=== PATIENT | male | born 1945 | race Caucasian/White ===

== ENCOUNTER 2020-03-06 12:56 | Inpatient (IN) ==
[2020-03-06] MEDS ORDERED: Ondansetron 4 MG/2 ML VIAL IVP PRN (15:31)
[2020-03-06] MEDS ORDERED: Naloxone 0.4 MG/ML INJ IVP PRN (15:31)
[2020-03-06] MEDS ORDERED: Ipratropium/Albuterol Neb 3 ML IH SCH (17:00)
[2020-03-06] MEDS: Azithromycin 250 MG TABLET PO SCH (19:34)
[2020-03-07 05:16] LABS: Basophils % 0.1 %; Hematocrit 43.1 % (37.5-50.1); Hemoglobin 14.2 g/dL (12.9-16.9); Immature Granulocytes % 0.8 % (0-4); Lymphocytes # 0.9 K/mcL (0.6-4.6); Lymphocytes % 9.6 %; Mean Corpuscular HGB Conc 32.9 g/dL (31.6-35.5); Mean Corpuscular Hemoglobin 29.4 pg (28.0-33.3); Mean Corpuscular Volume 89.2 fL (83.0-100.0); Mean Platelet Volume 9.4 fL (9.4-12.4); Monocytes # 0.2 K/mcL (0.0-1.3); Monocytes % 2.6 %; Neutrophils # 7.7 K/mcL (1.6-8.9); Platelet Count 141 K/mcL (140-400); Red Blood Count 4.83 M/mcL (4.19-5.50); Red Cell Distribution Width 13.9 % (11.5-14.5); Segmented Neutrophils % 86.9 %; White Blood Count 8.8 K/mcL (4.3-11.1)
[2020-03-07 05:35] LABS: C-Reactive Protein 161 mg/L (Less than 10); Lactate Dehydrogenase 281 Units/L (140-271)
[2020-03-07 05:37] LABS: Calcium 9.6 mg/dL (8.6-10.3); Chol/HDL Ratio 3.6 (0-4.9); Magnesium 2.2 mg/dL (1.6-2.6); Phosphorous 4.7 mg/dL (2.7-4.5); Potassium 4.9 mEq/L (3.5-5.1)
[2020-03-07 05:41] LABS: Troponin I 0.07 ng/mL (< 0.04)
[2020-03-07 05:54] LABS: Ferritin 763 ng/mL (20-250)
[2020-03-07] MEDS: Tiotropium 18 MCG inhalation IH SCH (10:15)
[2020-03-07] MEDS: Azithromycin 250 MG TABLET PO SCH (18:00)
[2020-03-07] MEDS: FLUoxetine HCl 10 MG CAPSULE PO SCH ×2 (19:46→21:12)
[2020-03-07] MEDS: Aspirin 81 MG TAB.CHEW PO SCH (19:46)
[2020-03-08 04:35] LABS: Calcium 9.2 mg/dL (8.6-10.3); Potassium 4.5 mEq/L (3.5-5.1)
[2020-03-08] MEDS: Aspirin 81 MG TAB.CHEW PO SCH (08:03)
[2020-03-08] MEDS: Tiotropium 18 MCG inhalation IH SCH (08:04)
[2020-03-08] MEDS: Budesonide/Formoterol 160/4.5 1 PUFF INH IH SCH ×2 (08:04→22:07)
[2020-03-08] MEDS ORDERED: predniSONE 20 MG TABLET PO ONE (11:59)
[2020-03-08] MEDS: Azithromycin 250 MG TABLET PO SCH (17:19)
[2020-03-08] MEDS: FLUoxetine HCl 10 MG CAPSULE PO SCH (20:32)
[2020-03-09] MEDS: Aspirin 81 MG TAB.CHEW PO SCH (07:50)
[2020-03-09] MEDS: Budesonide/Formoterol 160/4.5 1 PUFF INH IH SCH (08:32)
[2020-03-09 11:21] VITALS: BP 110/65
== END 2020-03-09 11:29 | disposition home or self-care (01) | DRG 189 ==
LOC: 2ANU → 2NENU 17:36 → SUATTDRO 03-08 14:34 → 2ANU 03-08 21:22
PROVIDERS: ADMIT Internal Medicine; ATTEND Pharmacist

== ENCOUNTER 2021-05-27 09:15 | Inpatient (IN) ==
[2021-05-27] MEDS ORDERED: Gadolinium Contrast Agent (WT Based) IV PRN (09:33)
[2021-05-27] MEDS ORDERED: Aspirin 81 MG TAB.CHEW PO ONE (09:34)
[2021-05-27 09:51] LABS: Basophils # 0.1 K/mcL (0.0-0.2); Basophils % 0.5 %; Eosinophils # 0.1 K/mcL (0.0-0.6); Eosinophils % 0.8 %; Hematocrit 40.5 % (37.5-50.1); Hemoglobin 12.9 g/dL (12.9-16.9); Immature Granulocytes % 1.1 % (0-4); Lymphocytes # 2.5 K/mcL (0.6-4.6); Lymphocytes % 23.1 %; Mean Corpuscular HGB Conc 31.9 g/dL (31.6-35.5); Mean Corpuscular Hemoglobin 30.6 pg (28.0-33.3); Mean Platelet Volume 8.8 fL (9.4-12.4); Monocytes # 0.7 K/mcL (0.0-1.3); Monocytes % 6.6 %; Neutrophils # 7.5 K/mcL (1.6-8.9); Platelet Count 181 K/mcL (140-400); Red Blood Count 4.22 M/mcL (4.19-5.50); Segmented Neutrophils % 67.9 %
[2021-05-27 10:15] LABS: Troponin I 0.04 ng/mL (< 0.04)
[2021-05-27 10:20] LABS: Albumin 3.9 g/dL (3.5-5.7); Albumin/Globulin Ratio 1.9 (1.1-2.2); Bilirubin,Direct 0.1 mg/dL (0.0-0.2); Bilirubin,Indirect 0.7 mg/dL (0.0-1.0); Bilirubin,Total 0.8 mg/dL (0.3-1.0); Calcium 9.2 mg/dL (8.6-10.3); Globulin 2.1 g/dL (2.4-3.5); Potassium 4.1 mEq/L (3.5-5.1)
[2021-05-27] MEDS ORDERED: Morphine Sulfate 2 MG/ML SYRINGE IVP STA (12:48)
[2021-05-27] MEDS ORDERED: Morphine Sulfate 2 MG/ML SYRINGE IVP ONE (13:32)
[2021-05-27] MEDS ORDERED: GADOBUTROL 30 MMOL/30 ML VIAL IVP ONE (14:38)
[2021-05-27 16:24] LABS: Bilirubin,Urine Negative (Negative); Blood,Urine Negative (Negative); Clarity,Urine Clear (Clear); Color,Urine Yellow (Yellow); Glucose,Urine (UA) Normal (Normal); Ketones,Urine Negative (Negative); Leukocyte Esterase,Urine Negative (Negative); Nitrite,Urine Negative (Negative); PH,Urine 6.5 pH Units (5.0-8.0); Protein,Urine Trace mg/dL (Neg-Trace); Specific Gravity,Urine 1.028 (1.010-1.025)
[2021-05-27] MEDS ORDERED: Naloxone 0.4 MG/ML INJ IVP PRN (17:13)
[2021-05-27] MEDS ORDERED: Acetaminophen 325 MG TABLET PO PRN (17:13)
[2021-05-27] MEDS ORDERED: *HR* HYDROcodone/Acet 5/325 mg TABLET PO PRN ×2 (17:54→18:18)
[2021-05-27] MEDS ORDERED: Nitroglycerin 0.4 MG TAB.SUBL SL PRN (18:18)
[2021-05-27] MEDS: Budesonide/Formoterol 160/4.5 1 PUFF INH IH SCH (20:01)
[2021-05-27] MEDS: FLUoxetine HCl 10 MG CAPSULE PO SCH (20:49)
[2021-05-27] MEDS: Gabapentin 100 MG CAPSULE PO SCH (20:49)
[2021-05-27] MEDS: Albuterol 2.5 MG/3 ML NEBULIZER IH PRN (21:56)
[2021-05-27] MEDS: *HR* OxyCODONE Immed Rel 5 MG TABLET PO PRN (23:59)
[2021-05-28] MEDS ORDERED: predniSONE 10 MG TABLET PO SCH (01:00)
[2021-05-28 02:40] LABS: Basophils % 0.4 %; Eosinophils % 0.4 %; Hematocrit 37.1 % (37.5-50.1); Hemoglobin 12.2 g/dL (12.9-16.9); Immature Granulocytes % 1.3 % (0-4); Lymphocytes # 1.9 K/mcL (0.6-4.6); Lymphocytes % 23.8 %; Mean Corpuscular HGB Conc 32.9 g/dL (31.6-35.5); Mean Corpuscular Hemoglobin 30.8 pg (28.0-33.3); Mean Corpuscular Volume 93.7 fL (83.0-100.0); Mean Platelet Volume 8.9 fL (9.4-12.4); Monocytes # 0.5 K/mcL (0.0-1.3); Monocytes % 6.4 %; Neutrophils # 5.3 K/mcL (1.6-8.9); Platelet Count 156 K/mcL (140-400); Red Blood Count 3.96 M/mcL (4.19-5.50); Red Cell Distribution Width 15.9 % (11.5-14.5); Segmented Neutrophils % 67.7 %; White Blood Count 7.8 K/mcL (4.3-11.1)
[2021-05-28 03:00] LABS: BUN/Creatinine Ratio 19 (6-26); Blood Urea Nitrogen 25 mg/dL (8-23); Calcium 9.1 mg/dL (8.6-10.3); Carbon Dioxide 25 mEq/L (23-29); Chloride 104 mEq/L (98-107); Glucose 82 mg/dL (70-105); Osmolality,Calculated 289 (280-300); Potassium 4.4 mEq/L (3.5-5.1); Sodium 138 mEq/L (136-145); eGFR For African Americans > 60 (> 60); eGFR For Non-African Americans 52 (> 60)
[2021-05-28] MEDS ORDERED: Furosemide 20 MG TABLET PO SCH (09:00)
[2021-05-28] MEDS: Metoprolol XL (24 HR) Succ 25 MG TAB.ER.24H PO SCH (09:26)
[2021-05-28] MEDS: Gabapentin 100 MG CAPSULE PO SCH ×3 (09:26→20:35)
[2021-05-28] MEDS: *HR* OxyCODONE Immed Rel 5 MG TABLET PO PRN ×2 (09:29→18:59)
[2021-05-28] MEDS: Budesonide/Formoterol 160/4.5 1 PUFF INH IH SCH ×2 (09:38→20:20)
[2021-05-28] MEDS: Albuterol 2.5 MG/3 ML NEBULIZER IH PRN (09:43)
[2021-05-28] MEDS ORDERED: 0.9 % Sodium Chloride 1,000 ML IVC SCH (13:45)
[2021-05-28] MEDS ORDERED: Aspirin Enteric Coated 81 MG Tablet PO SCH (13:45)
[2021-05-28] MEDS ORDERED: Perflutren Lipid Microsphere 1.3 ML in 0.9 % Sodium Chloride 8.7 ML IVP PRN (16:36)
[2021-05-28] MEDS: FLUoxetine HCl 10 MG CAPSULE PO SCH (20:34)
[2021-05-29 03:34] LABS: Basophils % 0.2 %; Eosinophils # 0.1 K/mcL (0.0-0.6); Eosinophils % 0.7 %; Hematocrit 35.3 % (37.5-50.1); Hemoglobin 11.7 g/dL (12.9-16.9); Immature Granulocytes % 1.6 % (0-4); Lymphocytes # 2.2 K/mcL (0.6-4.6); Mean Corpuscular HGB Conc 33.1 g/dL (31.6-35.5); Mean Corpuscular Hemoglobin 31.3 pg (28.0-33.3); Mean Corpuscular Volume 94.4 fL (83.0-100.0); Mean Platelet Volume 8.9 fL (9.4-12.4); Monocytes # 0.7 K/mcL (0.0-1.3); Monocytes % 8.2 %; Neutrophils # 5.6 K/mcL (1.6-8.9); Platelet Count 162 K/mcL (140-400); Red Blood Count 3.74 M/mcL (4.19-5.50); Segmented Neutrophils % 64.3 %; White Blood Count 8.7 K/mcL (4.3-11.1)
[2021-05-29 03:48] LABS: Calcium 8.6 mg/dL (8.6-10.3)
[2021-05-29] MEDS: *HR* OxyCODONE Immed Rel 5 MG TABLET PO PRN (03:54)
[2021-05-29] MEDS ORDERED: Polymyxin B Sulfate 500,000 UNIT, Sodium Chloride IRRigation 1,000 ML IR ONE (06:00)
[2021-05-29] MEDS: Metoprolol XL (24 HR) Succ 25 MG TAB.ER.24H PO SCH (06:39)
[2021-05-29] MEDS: Budesonide/Formoterol 160/4.5 1 PUFF INH IH SCH (07:49)
[2021-05-29] MEDS: Albuterol 2.5 MG/3 ML NEBULIZER IH PRN (07:49)
[2021-05-29] MEDS ORDERED: *HR* Succinylcholine 200 MG/10 ML VIAL IVP ONE (07:54)
[2021-05-29] MEDS ORDERED: Lidocaine -MPF 4% 5 ML AMPUL ONE (07:54)
[2021-05-29] MEDS ORDERED: Ondansetron 4 MG/2 ML VIAL ONE (07:54)
[2021-05-29] MEDS ORDERED: Lidocaine -MPF 2% 2 ML VIAL ONE (07:54)
[2021-05-29] MEDS ORDERED: *HR* Propofol 200 MG/20 ML VIAL IVP ONE (07:57)
[2021-05-29] MEDS ORDERED: *HR* FentaNYL (PF) 100 MCG/2 ML VIAL ONE (07:57)
[2021-05-29] MEDS ORDERED: *HR* Remifentanil 1 MG VIAL IVP ONE (07:57)
[2021-05-29] MEDS ORDERED: Acetaminophen IV 1,000 MG/100 ML BAG IVPB ONE (08:05)
[2021-05-29] MEDS ORDERED: Heparin 1,000 UNITS/500 mL 500 ML ONE (08:48)
[2021-05-29] MEDS ORDERED: Albumin Human 5% 0 GM/0 ML IV.SOLN ONE (09:18)
[2021-05-29] MEDS ORDERED: ceFAZolin 2,000 MG in Water for inj. (sterile) 20 ML IVP ONE (09:18)
[2021-05-29] MEDS ORDERED: *HR* Vasopressin 20 UNIT/ML VIAL ONE (09:18)
[2021-05-29] MEDS ORDERED: *HR* Phenylephrine 10 MG/ML VIAL ONE (09:21)
[2021-05-29] MEDS ORDERED: EPHEDrine 50 MG/ML VIAL ONE (11:58)
[2021-05-29] MEDS ORDERED: CeFAZolin Syr 2,000MG/20 ML 2,000 MG/20 ML SYRINGE IVPB ONE (12:00)
[2021-05-29] MEDS ORDERED: *HR* FentaNYL (PF) 100 MCG/2 ML VIAL IVP PRN (13:55)
[2021-05-29] MEDS ORDERED: *HR* HYDROmorphone PF 0.5 MG/0.5 ML SYRINGE IVP PRN (13:55)
[2021-05-29 14:25] LABS: Basophils % 0.2 %; Eosinophils % 0.2 %; Hematocrit 29.8 % (37.5-50.1); Immature Granulocytes % 1.2 % (0-4); Lymphocytes # 0.6 K/mcL (0.6-4.6); Lymphocytes % 6.4 %; Mean Corpuscular HGB Conc 31.9 g/dL (31.6-35.5); Mean Corpuscular Hemoglobin 30.4 pg (28.0-33.3); Mean Corpuscular Volume 95.5 fL (83.0-100.0); Mean Platelet Volume 8.7 fL (9.4-12.4); Monocytes # 0.2 K/mcL (0.0-1.3); Monocytes % 2.7 %; Platelet Count 135 K/mcL (140-400); Red Blood Count 3.12 M/mcL (4.19-5.50); Red Cell Distribution Width 15.9 % (11.5-14.5); Segmented Neutrophils % 89.3 %
[2021-05-29] MEDS ORDERED: Ringers Solution, Lactated 1,000 ML ONE (14:29)
[2021-05-29 14:32] LABS: Hemoglobin 9.5 g/dL (12.9-16.9)
[2021-05-29 14:50] LABS: Potassium 4.5 mEq/L (3.5-5.1); Troponin I 0.03 ng/mL (< 0.04)
[2021-05-29] MEDS ORDERED: Ondansetron 4 MG/2 ML VIAL IVP PRN (16:05)
[2021-05-29] MEDS ORDERED: Naloxone 0.4 MG/ML INJ IVP PRN (16:05)
[2021-05-29] MEDS ORDERED: Aspirin 81 MG TAB.CHEW PO SCH (18:00)
[2021-05-29] MEDS: CeFAZolin 2 GM/120 ML BAG IVPB SCH (18:24)
[2021-05-29] MEDS: Ringers Solution, Lactated 1,000 ML IVC SCH (18:24)
[2021-05-29 20:24] LABS: Hematocrit 30.8 % (37.5-50.1); Hemoglobin 9.8 g/dL (12.9-16.9)
[2021-05-30] MEDS: CeFAZolin 2 GM/120 ML BAG IVPB SCH (00:12)
[2021-05-30 02:10] LABS: Basophils % 0.1 %; Hematocrit 29.4 % (37.5-50.1); Hemoglobin 9.3 g/dL (12.9-16.9); Immature Granulocytes % 0.7 % (0-4); Lymphocytes # 0.6 K/mcL (0.6-4.6); Lymphocytes % 6.9 %; Mean Corpuscular HGB Conc 31.6 g/dL (31.6-35.5); Mean Corpuscular Hemoglobin 30.5 pg (28.0-33.3); Mean Corpuscular Volume 96.4 fL (83.0-100.0); Mean Platelet Volume 9.2 fL (9.4-12.4); Monocytes # 0.5 K/mcL (0.0-1.3); Monocytes % 5.4 %; Neutrophils # 7.6 K/mcL (1.6-8.9); Platelet Count 137 K/mcL (140-400); Red Blood Count 3.05 M/mcL (4.19-5.50); Red Cell Distribution Width 15.8 % (11.5-14.5); Segmented Neutrophils % 86.9 %; White Blood Count 8.7 K/mcL (4.3-11.1)
[2021-05-30 02:31] LABS: Calcium 8.4 mg/dL (8.6-10.3); Potassium 4.8 mEq/L (3.5-5.1)
[2021-05-30] MEDS: Ringers Solution, Lactated 1,000 ML IVC SCH ×2 (04:34→15:10)
[2021-05-30] MEDS: Aspirin 81 MG TAB.CHEW PO SCH (10:11)
[2021-05-30] MEDS: *HR* HYDROcodone/Acet 5/325 mg TABLET PO PRN ×3 (10:54→21:38)
[2021-05-30] MEDS ORDERED: predniSONE 20 MG TABLET PO SCH (14:00)
[2021-05-30] MEDS: Gabapentin 100 MG CAPSULE PO SCH ×2 (15:08→21:40)
[2021-05-30] MEDS ORDERED: predniSONE 20 MG TABLET PO ONE (18:11)
[2021-05-30] MEDS ORDERED: Albuterol 2.5 MG/3 ML NEBULIZER IH PRN (18:11)
[2021-05-30] MEDS: Ipratropium/Albuterol Neb 3 ML IH SCH ×2 (19:53→23:20)
[2021-05-30] MEDS: Budesonide/Formoterol 160/4.5 1 PUFF INH IH SCH (19:53)
[2021-05-30] MEDS: FLUoxetine HCl 10 MG CAPSULE PO SCH (21:38)
[2021-05-31] MEDS: Ipratropium/Albuterol Neb 3 ML IH SCH ×6 (03:11→23:04)
[2021-05-31 07:08] LABS: Hematocrit 28.1 % (37.5-50.1); Mean Corpuscular Hemoglobin 30.5 pg (28.0-33.3); Mean Corpuscular Volume 95.3 fL (83.0-100.0); Mean Platelet Volume 9.3 fL (9.4-12.4); Platelet Count 148 K/mcL (140-400); Red Blood Count 2.95 M/mcL (4.19-5.50); Red Cell Distribution Width 15.9 % (11.5-14.5); White Blood Count 7.7 K/mcL (4.3-11.1)
[2021-05-31 07:24] LABS: Calcium 8.7 mg/dL (8.6-10.3); Potassium 4.4 mEq/L (3.5-5.1)
[2021-05-31] MEDS: Budesonide/Formoterol 160/4.5 1 PUFF INH IH SCH ×2 (07:30→19:58)
[2021-05-31] MEDS ORDERED: Metoprolol XL (24 HR) Succ 25 MG TAB.ER.24H PO SCH (09:00)
[2021-05-31] MEDS ORDERED: 0.9 % Sodium Chloride 500 ML IVC ONE ×2 (09:56→16:07)
[2021-05-31] MEDS: Furosemide 20 MG TABLET PO SCH (10:28)
[2021-05-31] MEDS: Gabapentin 100 MG CAPSULE PO SCH ×3 (10:28→23:17)
[2021-05-31] MEDS: Aspirin 81 MG TAB.CHEW PO SCH (10:28)
[2021-05-31] MEDS: predniSONE 20 MG TABLET PO SCH (10:29)
[2021-05-31] MEDS: Ringers Solution, Lactated 1,000 ML IVC SCH (16:23)
[2021-05-31] MEDS: *HR* OxyCODONE Immed Rel 5 MG TABLET PO PRN (18:35)
[2021-05-31] MEDS: FLUoxetine HCl 10 MG CAPSULE PO SCH (23:17)
[2021-06-01] MEDS: Ipratropium/Albuterol Neb 3 ML IH SCH ×6 (03:35→23:39)
[2021-06-01 07:14] LABS: Hematocrit 27.8 % (37.5-50.1); Hemoglobin 8.7 g/dL (12.9-16.9); Mean Corpuscular HGB Conc 31.3 g/dL (31.6-35.5); Mean Corpuscular Hemoglobin 31.4 pg (28.0-33.3); Mean Corpuscular Volume 100.4 fL (83.0-100.0); Mean Platelet Volume 9.3 fL (9.4-12.4); Platelet Count 149 K/mcL (140-400); Red Blood Count 2.77 M/mcL (4.19-5.50); Red Cell Distribution Width 15.9 % (11.5-14.5); White Blood Count 8.8 K/mcL (4.3-11.1)
[2021-06-01 07:38] LABS: BUN/Creatinine Ratio 25 (6-26); Blood Urea Nitrogen 34 mg/dL (8-23); Calcium 8.6 mg/dL (8.6-10.3); Carbon Dioxide 25 mEq/L (23-29); Chloride 106 mEq/L (98-107); Glucose 103 mg/dL (70-105); Osmolality,Calculated 296 (280-300); Sodium 139 mEq/L (136-145); eGFR For African Americans > 60 (> 60); eGFR For Non-African Americans 51 (> 60)
[2021-06-01] MEDS: Acetaminophen 325 MG TABLET PO PRN ×2 (07:41→15:58)
[2021-06-01] MEDS: Aspirin 81 MG TAB.CHEW PO SCH (07:41)
[2021-06-01] MEDS: Gabapentin 100 MG CAPSULE PO SCH ×3 (07:41→20:33)
[2021-06-01] MEDS: predniSONE 20 MG TABLET PO SCH (07:42)
[2021-06-01] MEDS: Furosemide 20 MG TABLET PO SCH (07:57)
[2021-06-01] MEDS ORDERED: 0.9 % Sodium Chloride 1,000 ML IVC ONE (07:58)
[2021-06-01 09:00] LABS: Hematocrit 28.9 % (37.5-50.1); Hemoglobin 8.8 g/dL (12.9-16.9)
[2021-06-01] MEDS: Budesonide/Formoterol 160/4.5 1 PUFF INH IH SCH ×2 (10:57→20:19)
[2021-06-01] MEDS ORDERED: polyethylene glycoL 3350 17 GM POWD.PACK PO ONE (19:54)
[2021-06-01] MEDS: FLUoxetine HCl 10 MG CAPSULE PO SCH (20:34)
[2021-06-01] MEDS: *HR* OxyCODONE Immed Rel 5 MG TABLET PO PRN (20:41)
[2021-06-02] MEDS: Ipratropium/Albuterol Neb 3 ML IH SCH ×6 (04:35→22:50)
[2021-06-02 06:19] LABS: Hematocrit 27.1 % (37.5-50.1); Hemoglobin 8.6 g/dL (12.9-16.9); Mean Corpuscular HGB Conc 31.7 g/dL (31.6-35.5); Mean Corpuscular Volume 97.8 fL (83.0-100.0); Platelet Count 185 K/mcL (140-400); Red Blood Count 2.77 M/mcL (4.19-5.50); Red Cell Distribution Width 16.2 % (11.5-14.5); White Blood Count 9.9 K/mcL (4.3-11.1)
[2021-06-02 06:37] LABS: BUN/Creatinine Ratio 24 (6-26); Blood Urea Nitrogen 33 mg/dL (8-23); Calcium 8.6 mg/dL (8.6-10.3); Carbon Dioxide 28 mEq/L (23-29); Chloride 108 mEq/L (98-107); Glucose 97 mg/dL (70-105); Osmolality,Calculated 301 (280-300); Potassium 4.3 mEq/L (3.5-5.1); Sodium 142 mEq/L (136-145); eGFR For African Americans > 60 (> 60); eGFR For Non-African Americans 51 (> 60)
[2021-06-02] MEDS: Aspirin 81 MG TAB.CHEW PO SCH (08:50)
[2021-06-02] MEDS: *HR* OxyCODONE Immed Rel 5 MG TABLET PO PRN ×2 (08:51→23:05)
[2021-06-02] MEDS: predniSONE 20 MG TABLET PO SCH (08:51)
[2021-06-02] MEDS: Gabapentin 100 MG CAPSULE PO SCH ×3 (08:51→21:40)
[2021-06-02] MEDS: Furosemide 20 MG TABLET PO SCH (08:51)
[2021-06-02] MEDS: Budesonide/Formoterol 160/4.5 1 PUFF INH IH SCH ×2 (09:24→19:46)
[2021-06-02] MEDS ORDERED: Isovue-370 500 ML BOTTLE IVP ONE ×2 (14:18→15:35)
[2021-06-02] MEDS ORDERED: 0.9 % Sodium Chloride 1,000 ML IVC SCH (14:30)
[2021-06-02 15:57] LABS: Bacteria,Urine Few per hpf (None-Few); Bilirubin,Urine Negative (Negative); Blood,Urine Large (Negative); Clarity,Urine Turbid (Clear); Color,Urine Light-Yellow (Yellow); Glucose,Urine (UA) Normal (Normal); Ketones,Urine Negative (Negative); Leukocyte Esterase,Urine Large (Negative); Mucus,Urine Few per lpf (None-Few); Nitrite,Urine Negative (Negative); Protein,Urine Trace mg/dL (Neg-Trace); RBC,Urine TNTC per hpf (0-3); Specific Gravity,Urine 1.012 (1.010-1.025); Urobilinogen,Urine Normal (Normal); WBC,Urine TNTC per hpf (0-3)
[2021-06-02] MEDS: FLUoxetine HCl 10 MG CAPSULE PO SCH (21:40)
[2021-06-03] MEDS: Ipratropium/Albuterol Neb 3 ML IH SCH ×6 (04:03→23:01)
[2021-06-03] MEDS ORDERED: *HR* Metoprolol 5 MG/5 ML VIAL IVP ONE (05:18)
[2021-06-03] MEDS: *HR* OxyCODONE Immed Rel 5 MG TABLET PO PRN (06:27)
[2021-06-03] MEDS: Budesonide/Formoterol 160/4.5 1 PUFF INH IH SCH ×2 (07:39→20:04)
[2021-06-03 07:50] LABS: Hematocrit 26.7 % (37.5-50.1); Hemoglobin 8.5 g/dL (12.9-16.9); Mean Corpuscular HGB Conc 31.8 g/dL (31.6-35.5); Mean Corpuscular Hemoglobin 30.7 pg (28.0-33.3); Mean Corpuscular Volume 96.4 fL (83.0-100.0); Mean Platelet Volume 9.2 fL (9.4-12.4); Platelet Count 187 K/mcL (140-400); Red Blood Count 2.77 M/mcL (4.19-5.50); Red Cell Distribution Width 16.2 % (11.5-14.5)
[2021-06-03] MEDS ORDERED: 0.9 % Sodium Chloride 1,000 ML IVC ONE (08:06)
[2021-06-03 08:11] LABS: Albumin 3.2 g/dL (3.5-5.7); Calcium 8.4 mg/dL (8.6-10.3); Potassium 4.4 mEq/L (3.5-5.1)
[2021-06-03] MEDS: predniSONE 20 MG TABLET PO SCH (08:27)
[2021-06-03] MEDS: Gabapentin 100 MG CAPSULE PO SCH ×3 (08:27→21:23)
[2021-06-03] MEDS: Furosemide 20 MG TABLET PO SCH (08:27)
[2021-06-03] MEDS: Aspirin 81 MG TAB.CHEW PO SCH (08:27)
[2021-06-03] MEDS: Piperacillin/Tazobactam 3.375 GM in 0.9 % Sodium Chloride Mini Bag 100 ML IVPB SCH ×2 (08:28→16:10)
[2021-06-03] MEDS: FLUoxetine HCl 10 MG CAPSULE PO SCH (21:23)
[2021-06-04] MEDS: Piperacillin/Tazobactam 3.375 GM in 0.9 % Sodium Chloride Mini Bag 100 ML IVPB SCH ×2 (00:31→08:10)
[2021-06-04] MEDS: Ipratropium/Albuterol Neb 3 ML IH SCH ×3 (03:55→10:53)
[2021-06-04 05:22] LABS: Hematocrit 26.2 % (37.5-50.1); Hemoglobin 8.2 g/dL (12.9-16.9); Mean Corpuscular HGB Conc 31.3 g/dL (31.6-35.5); Mean Corpuscular Hemoglobin 29.9 pg (28.0-33.3); Mean Corpuscular Volume 95.6 fL (83.0-100.0); Mean Platelet Volume 8.9 fL (9.4-12.4); Platelet Count 181 K/mcL (140-400); Red Blood Count 2.74 M/mcL (4.19-5.50); Red Cell Distribution Width 15.9 % (11.5-14.5); White Blood Count 16.4 K/mcL (4.3-11.1)
[2021-06-04 05:30] LABS: Calcium 8.8 mg/dL (8.6-10.3); Potassium 4.3 mEq/L (3.5-5.1)
[2021-06-04] MEDS: Budesonide/Formoterol 160/4.5 1 PUFF INH IH SCH (07:50)
[2021-06-04] MEDS: Aspirin 81 MG TAB.CHEW PO SCH (08:10)
[2021-06-04] MEDS: Furosemide 20 MG TABLET PO SCH (08:10)
[2021-06-04] MEDS: predniSONE 20 MG TABLET PO SCH (08:10)
[2021-06-04] MEDS: Gabapentin 100 MG CAPSULE PO SCH (08:10)
[2021-06-04] MEDS: *HR* OxyCODONE Immed Rel 5 MG TABLET PO PRN (09:56)
[2021-06-04 13:10] LABS: Adenovirus Not Detected (Not Detect); Bordetella Pertussis Not Detected (Not Detect); Chlamydophila pneumoniae Not Detected (Not Detect); Coronavirus 229E Not Detected (Not Detect); Coronavirus HKU1 Not Detected (Not Detect); Coronavirus NL63 Not Detected (Not Detect); Coronavirus OC43 Not Detected (Not Detect); Human Metapneumovirus Not Detected (Not Detect); Human Rhinovirus/Enterovirus Not Detected (Not Detect); Influenza A Subtype 2009 H1 Not Detected (Not Detect); Influenza B Not Detected (Not Detect); Mycoplasma pneumoniae Not Detected (Not Detect); Parainfluenza Virus 1 Not Detected (Not Detect); Parainfluenza Virus 2 Not Detected (Not Detect); Parainfluenza Virus 3 Not Detected (Not Detect); Parainfluenza Virus 4 Not Detected (Not Detect); Respiratory Syncytial Virus Not Detected (Not Detect); SARS-CoV-2 Not Detected (Not Detect)
[2021-06-04 13:51] VITALS: BP 126/68; PULSE 87; TEMP 98; O2SAT 95
[2021-06-04] MEDS ORDERED: levoFLOXacin 750 MG TABLET PO SCH (16:00)
== END 2021-06-04 14:50 | disposition other institution (70) | DRG 472 ==
LOC: EMEROOARM 09:15 → 3BNU 09:15 → SUATTDRO 17:11 → 3BNU 18:04 → 2NNU 05-29 15:04 → SUATTDRO 05-29 21:41 → 3NENU 05-30 17:31
PROVIDERS: ADMIT Internal Medicine; ATTEND Family Medicine

== ENCOUNTER 2021-06-16 11:42 | Inpatient (IN) ==
[2021-06-16 14:57] LABS: ABG Base Excess -4 mEq/L (-2 to 3); ABG HCO3 23 mEq/L (21-27); ABG Oxygen Saturation 88 % (95-98); ABG PCO2 49 mmHg (35-45); ABG PH 7.28 pH Units (7.32-7.45); ABG PO2 62 mmHg (85-104); ABG TCO2 24 mEq/L (20-26); Blood Gas Modality AVAPS; Blood Gas VT 450 cc
[2021-06-16 15:28] LABS: Adenovirus Not Detected (Not Detect); Bordetella Pertussis Not Detected (Not Detect); Chlamydophila pneumoniae Not Detected (Not Detect); Coronavirus 229E Not Detected (Not Detect); Coronavirus HKU1 Not Detected (Not Detect); Coronavirus NL63 Not Detected (Not Detect); Coronavirus OC43 Not Detected (Not Detect); Human Metapneumovirus Not Detected (Not Detect); Human Rhinovirus/Enterovirus Not Detected (Not Detect); Influenza A Subtype 2009 H1 Not Detected (Not Detect); Influenza B Not Detected (Not Detect); Mycoplasma pneumoniae Not Detected (Not Detect); Parainfluenza Virus 1 Not Detected (Not Detect); Parainfluenza Virus 2 Not Detected (Not Detect); Parainfluenza Virus 3 DETECTED (Not Detect); Parainfluenza Virus 4 Not Detected (Not Detect); Respiratory Syncytial Virus Not Detected (Not Detect); SARS-CoV-2 Not Detected (Not Detect)
[2021-06-16] MEDS ORDERED: Naloxone 0.4 MG/ML INJ IVP PRN (15:43)
[2021-06-16] MEDS ORDERED: Perflutren Lipid Microsphere 1.3 ML in 0.9 % Sodium Chloride 8.7 ML IVP PRN (15:43)
[2021-06-16] MEDS ORDERED: Albuterol 2.5 MG/3 ML NEBULIZER IH PRN (15:52)
[2021-06-16] MEDS ORDERED: Piperacillin/Tazobactam 3.375 GM in 0.9 % Sodium Chloride Mini Bag 100 ML IVPB SCH (16:00)
[2021-06-16] MEDS ORDERED: Vancomycin (wt based) 1,000 MG VIAL IVPB SCH (16:00)
[2021-06-16 17:11] LABS: Bacteria,Urine Few per hpf (None-Few); Bilirubin,Urine Negative (Negative); Blood,Urine Trace (Negative); Clarity,Urine Clear (Clear); Color,Urine Light-Yellow (Yellow); Glucose,Urine (UA) Normal (Normal); Ketones,Urine Negative (Negative); Leukocyte Esterase,Urine Small (Negative); Nitrite,Urine Negative (Negative); PH,Urine 5.5 pH Units (5.0-8.0); Protein,Urine Trace mg/dL (Neg-Trace); RBC,Urine 0-3 per hpf (0-3); Specific Gravity,Urine 1.016 (1.010-1.025); Squamous Epithelial Cell,Urine Few per hpf (None-Few); Urobilinogen,Urine Normal (Normal); WBC,Urine 0-3 per hpf (0-3)
[2021-06-16 17:52] LABS: Basophils % 0.1 %; Hematocrit 31.7 % (37.5-50.1); Hemoglobin 9.7 g/dL (12.9-16.9); Immature Granulocytes % 0.7 % (0-4); Lymphocytes # 0.2 K/mcL (0.6-4.6); Lymphocytes % 1.5 %; Mean Corpuscular HGB Conc 30.6 g/dL (31.6-35.5); Mean Corpuscular Hemoglobin 29.9 pg (28.0-33.3); Mean Corpuscular Volume 97.8 fL (83.0-100.0); Mean Platelet Volume 9.3 fL (9.4-12.4); Monocytes # 0.2 K/mcL (0.0-1.3); Monocytes % 1.8 %; Neutrophils # 9.3 K/mcL (1.6-8.9); Platelet Count 163 K/mcL (140-400); Red Blood Count 3.24 M/mcL (4.19-5.50); Red Cell Distribution Width 16.2 % (11.5-14.5); Segmented Neutrophils % 95.9 %; White Blood Count 9.7 K/mcL (4.3-11.1)
[2021-06-16] MEDS: *HR* Heparin 5,000 UNIT/ML VIAL SQ SCH ×2 (17:58→23:37)
[2021-06-16 17:59] LABS: INR 1.1; Prothrombin Time 12.9 Seconds (9.4-12.1)
[2021-06-16] MEDS: Piperacillin/Tazobactam 3.375 GM in 0.9 % Sodium Chloride Mini Bag 100 ML IVPB SCH (17:59)
[2021-06-16] MEDS: MethylPREDNISolone 40 MG/ML VIAL IVP SCH (18:00)
[2021-06-16] MEDS: Azithromycin 500 MG in 0.9 % Sodium Chloride 250 ML IVPB SCH (18:01)
[2021-06-16 18:10] LABS: Platelet Estimate Normal (Normal)
[2021-06-16 18:12] LABS: Albumin 3.3 g/dL (3.5-5.7); Albumin/Globulin Ratio 1.3 (1.1-2.2); Bilirubin,Direct 0.1 mg/dL (0.0-0.2); Bilirubin,Indirect 0.4 mg/dL (0.0-1.0); Bilirubin,Total 0.5 mg/dL (0.3-1.0); Calcium 8.8 mg/dL (8.6-10.3); Globulin 2.5 g/dL (2.4-3.5); Magnesium 2.6 mg/dL (1.6-2.6); Phosphorous 6.5 mg/dL (2.7-4.5); Potassium 4.9 mEq/L (3.5-5.1); Total Protein 5.8 g/dL (6.4-8.9)
[2021-06-16] MEDS: Ipratropium/Albuterol Neb 3 ML IH SCH ×3 (18:24→23:58)
[2021-06-17] MEDS: Ipratropium/Albuterol Neb 3 ML IH SCH ×6 (03:35→23:42)
[2021-06-17] MEDS: MethylPREDNISolone 40 MG/ML VIAL IVP SCH ×2 (06:22→17:40)
[2021-06-17] MEDS: Piperacillin/Tazobactam 3.375 GM in 0.9 % Sodium Chloride Mini Bag 100 ML IVPB SCH ×3 (06:22→17:40)
[2021-06-17] MEDS: *HR* Heparin 5,000 UNIT/ML VIAL SQ SCH ×3 (08:26→23:29)
[2021-06-17] MEDS: Aspirin 81 MG TAB.CHEW PO SCH (08:26)
[2021-06-17] MEDS ORDERED: Ondansetron 4 MG/2 ML VIAL IVP PRN (11:09)
[2021-06-17] MEDS: Azithromycin 500 MG in 0.9 % Sodium Chloride 250 ML IVPB SCH (15:18)
[2021-06-17 23:26] LABS: Basophils % 0.1 %; Hematocrit 31.1 % (37.5-50.1); Hemoglobin 9.6 g/dL (12.9-16.9); Immature Granulocytes % 0.5 % (0-4); Lymphocytes # 0.3 K/mcL (0.6-4.6); Lymphocytes % 2.7 %; Mean Corpuscular HGB Conc 30.9 g/dL (31.6-35.5); Mean Corpuscular Hemoglobin 29.7 pg (28.0-33.3); Mean Corpuscular Volume 96.3 fL (83.0-100.0); Mean Platelet Volume 9.5 fL (9.4-12.4); Monocytes # 0.4 K/mcL (0.0-1.3); Monocytes % 4.1 %; Neutrophils # 9.2 K/mcL (1.6-8.9); Platelet Count 178 K/mcL (140-400); Red Blood Count 3.23 M/mcL (4.19-5.50); Red Cell Distribution Width 15.9 % (11.5-14.5); Segmented Neutrophils % 92.6 %
[2021-06-17 23:45] LABS: Calcium 8.5 mg/dL (8.6-10.3); Potassium 4.4 mEq/L (3.5-5.1)
[2021-06-18] MEDS: Ipratropium/Albuterol Neb 3 ML IH SCH ×6 (04:04→23:56)
[2021-06-18 04:49] LABS: Basophils % 0.1 %; Hematocrit 30.4 % (37.5-50.1); Hemoglobin 9.6 g/dL (12.9-16.9); Immature Granulocytes % 0.5 % (0-4); Lymphocytes # 0.4 K/mcL (0.6-4.6); Lymphocytes % 3.9 %; Mean Corpuscular HGB Conc 31.6 g/dL (31.6-35.5); Mean Corpuscular Hemoglobin 30.2 pg (28.0-33.3); Mean Corpuscular Volume 95.6 fL (83.0-100.0); Mean Platelet Volume 9.4 fL (9.4-12.4); Monocytes # 0.7 K/mcL (0.0-1.3); Monocytes % 6.6 %; Neutrophils # 8.7 K/mcL (1.6-8.9); Platelet Count 167 K/mcL (140-400); Red Blood Count 3.18 M/mcL (4.19-5.50); Red Cell Distribution Width 15.9 % (11.5-14.5); Segmented Neutrophils % 88.9 %; White Blood Count 9.8 K/mcL (4.3-11.1)
[2021-06-18 05:03] LABS: Calcium 8.8 mg/dL (8.6-10.3); Magnesium 2.6 mg/dL (1.6-2.6); Phosphorous 4.4 mg/dL (2.7-4.5); Potassium 4.6 mEq/L (3.5-5.1)
[2021-06-18] MEDS: MethylPREDNISolone 40 MG/ML VIAL IVP SCH ×2 (05:05→17:51)
[2021-06-18] MEDS: Piperacillin/Tazobactam 3.375 GM in 0.9 % Sodium Chloride Mini Bag 100 ML IVPB SCH ×2 (05:05→23:20)
[2021-06-18] MEDS: *HR* Heparin 5,000 UNIT/ML VIAL SQ SCH ×3 (08:48→23:20)
[2021-06-18] MEDS ORDERED: Metoprolol XL (24 HR) Succ 25 MG TAB.ER.24H PO SCH (09:00)
[2021-06-18] MEDS ORDERED: Budesonide/Formoterol 160/4.5 1 PUFF INH IH SCH (10:00)
[2021-06-18] MEDS: Gabapentin 100 MG CAPSULE PO SCH ×3 (15:14→20:56)
[2021-06-18] MEDS: Aspirin 81 MG TAB.CHEW PO SCH (15:14)
[2021-06-18] MEDS ORDERED: Piperacillin/Tazobactam 3.375 GM in 0.9 % Sodium Chloride Mini Bag 100 ML IVPB SCH (16:00)
[2021-06-18] MEDS ORDERED: Azithromycin 250 MG TABLET PO SCH (16:00)
[2021-06-18] MEDS ORDERED: Naloxone 0.4 MG/ML INJ IVP PRN (18:42)
[2021-06-18] MEDS ORDERED: Albuterol 2.5 MG/3 ML NEBULIZER IH PRN (18:42)
[2021-06-18] MEDS: Budesonide/Formoterol 160/4.5 1 PUFF INH IH SCH (20:11)
[2021-06-18] MEDS: FLUoxetine HCl 10 MG CAPSULE PO SCH (20:56)
[2021-06-18] MEDS ORDERED: FLUoxetine HCl 10 MG CAPSULE PO SCH (21:00)
[2021-06-19] MEDS: Ipratropium/Albuterol Neb 3 ML IH SCH ×6 (04:04→23:47)
[2021-06-19] MEDS ORDERED: MethylPREDNISolone 40 MG/ML VIAL IVP SCH (06:00)
[2021-06-19] MEDS: Piperacillin/Tazobactam 3.375 GM in 0.9 % Sodium Chloride Mini Bag 100 ML IVPB SCH ×2 (07:26→15:46)
[2021-06-19] MEDS: *HR* Heparin 5,000 UNIT/ML VIAL SQ SCH ×2 (07:27→15:47)
[2021-06-19] MEDS: Aspirin 81 MG TAB.CHEW PO SCH (07:27)
[2021-06-19] MEDS: Metoprolol XL (24 HR) Succ 25 MG TAB.ER.24H PO SCH (07:27)
[2021-06-19] MEDS: Gabapentin 100 MG CAPSULE PO SCH ×3 (07:27→20:32)
[2021-06-19] MEDS: Budesonide/Formoterol 160/4.5 1 PUFF INH IH SCH ×2 (07:39→19:44)
[2021-06-19] MEDS ORDERED: Azithromycin 250 MG TABLET PO SCH (16:00)
[2021-06-19] MEDS: Ondansetron 4 MG/2 ML VIAL IVP PRN (20:29)
[2021-06-19] MEDS: FLUoxetine HCl 10 MG CAPSULE PO SCH (20:32)
[2021-06-20] MEDS: Piperacillin/Tazobactam 3.375 GM in 0.9 % Sodium Chloride Mini Bag 100 ML IVPB SCH ×4 (00:21→23:15)
[2021-06-20] MEDS: *HR* Heparin 5,000 UNIT/ML VIAL SQ SCH ×4 (00:33→23:15)
[2021-06-20] MEDS: Ondansetron 4 MG/2 ML VIAL IVP PRN (02:57)
[2021-06-20] MEDS: Ipratropium/Albuterol Neb 3 ML IH SCH ×6 (03:29→23:30)
[2021-06-20 03:39] LABS: Eosinophils % 0.3 %; Hematocrit 34.1 % (37.5-50.1); Hemoglobin 10.7 g/dL (12.9-16.9); Immature Granulocytes % 0.6 % (0-4); Lymphocytes # 1.4 K/mcL (0.6-4.6); Lymphocytes % 12.4 %; Mean Corpuscular HGB Conc 31.4 g/dL (31.6-35.5); Mean Corpuscular Hemoglobin 30.3 pg (28.0-33.3); Mean Corpuscular Volume 96.6 fL (83.0-100.0); Mean Platelet Volume 9.6 fL (9.4-12.4); Monocytes # 0.9 K/mcL (0.0-1.3); Neutrophils # 8.9 K/mcL (1.6-8.9); Platelet Count 164 K/mcL (140-400); Red Blood Count 3.53 M/mcL (4.19-5.50); Red Cell Distribution Width 16.1 % (11.5-14.5); Segmented Neutrophils % 78.7 %; White Blood Count 11.3 K/mcL (4.3-11.1)
[2021-06-20 03:59] LABS: Calcium 9.4 mg/dL (8.6-10.3); Magnesium 2.4 mg/dL (1.6-2.6); Potassium 4.7 mEq/L (3.5-5.1)
[2021-06-20] MEDS: Aspirin 81 MG TAB.CHEW PO SCH (07:47)
[2021-06-20] MEDS: Gabapentin 100 MG CAPSULE PO SCH ×3 (07:47→20:26)
[2021-06-20] MEDS: Metoprolol XL (24 HR) Succ 25 MG TAB.ER.24H PO SCH (07:47)
[2021-06-20] MEDS ORDERED: 0.9 % Sodium Chloride 250 ML IVC ONE (07:58)
[2021-06-20] MEDS: Budesonide/Formoterol 160/4.5 1 PUFF INH IH SCH ×2 (08:00→19:57)
[2021-06-20 08:25] LABS: ABG Base Excess -1 mEq/L (-2 to 3); ABG HCO3 26 mEq/L (21-27); ABG Oxygen Saturation 97 % (95-98); ABG PCO2 50 mmHg (35-45); ABG PH 7.32 pH Units (7.32-7.45); ABG PO2 102 mmHg (85-104); ABG TCO2 27 mEq/L (20-26); Blood Gas Modality AVAPS; Blood Gas VT 450 cc
[2021-06-20] MEDS ORDERED: predniSONE 20 MG TABLET PO SCH (09:00)
[2021-06-20 10:48] LABS: INR 1.1
[2021-06-20] MEDS ORDERED: Albuterol 2.5 MG/3 ML NEBULIZER IH PRN (12:56)
[2021-06-20] MEDS ORDERED: Naloxone 0.4 MG/ML INJ IVP PRN (12:56)
[2021-06-20] MEDS ORDERED: Furosemide 40 MG/4 ML VIAL IVP ONE (12:59)
[2021-06-20] MEDS ORDERED: Furosemide 40 MG/4 ML VIAL ONE (13:11)
[2021-06-20] MEDS ORDERED: Azithromycin 250 MG TABLET PO SCH (16:00)
[2021-06-20] MEDS: FLUoxetine HCl 10 MG CAPSULE PO SCH (20:26)
[2021-06-21] MEDS: Ipratropium/Albuterol Neb 3 ML IH SCH ×6 (03:31→23:20)
[2021-06-21 03:58] LABS: Basophils % 0.2 %; Eosinophils % 0.2 %; Hematocrit 28.8 % (37.5-50.1); Immature Granulocytes % 0.3 % (0-4); Lymphocytes % 9.3 %; Mean Corpuscular HGB Conc 31.6 g/dL (31.6-35.5); Mean Corpuscular Hemoglobin 29.9 pg (28.0-33.3); Mean Corpuscular Volume 94.7 fL (83.0-100.0); Mean Platelet Volume 9.6 fL (9.4-12.4); Monocytes # 0.4 K/mcL (0.0-1.3); Monocytes % 4.1 %; Neutrophils # 8.9 K/mcL (1.6-8.9); Platelet Count 145 K/mcL (140-400); Red Blood Count 3.04 M/mcL (4.19-5.50); Red Cell Distribution Width 15.9 % (11.5-14.5); Segmented Neutrophils % 85.9 %; White Blood Count 10.4 K/mcL (4.3-11.1)
[2021-06-21 04:01] LABS: Hemoglobin 9.1 g/dL (12.9-16.9)
[2021-06-21 04:12] LABS: Calcium 8.9 mg/dL (8.6-10.3); Potassium 4.6 mEq/L (3.5-5.1)
[2021-06-21] MEDS: Piperacillin/Tazobactam 3.375 GM in 0.9 % Sodium Chloride Mini Bag 100 ML IVPB SCH ×3 (08:05→23:39)
[2021-06-21] MEDS: Budesonide/Formoterol 160/4.5 1 PUFF INH IH SCH ×2 (08:05→19:36)
[2021-06-21] MEDS: Aspirin 81 MG TAB.CHEW PO SCH (08:05)
[2021-06-21] MEDS: *HR* Heparin 5,000 UNIT/ML VIAL SQ SCH ×3 (08:05→23:40)
[2021-06-21] MEDS: predniSONE 20 MG TABLET PO SCH (08:06)
[2021-06-21] MEDS: Gabapentin 100 MG CAPSULE PO SCH ×3 (08:06→20:15)
[2021-06-21] MEDS ORDERED: Metoprolol XL (24 HR) Succ 25 MG TAB.ER.24H PO SCH (09:00)
[2021-06-21 10:53] LABS: Thyroid Stimulating Hormone 1.053 mcIU/mL (0.340-5.600)
[2021-06-21] MEDS: Ondansetron 4 MG/2 ML VIAL IVP PRN (16:54)
[2021-06-21] MEDS ORDERED: Artificial Tears SOLN 15 ML BOTTLE BOTH EYES PRN (18:53)
[2021-06-21] MEDS: FLUoxetine HCl 10 MG CAPSULE PO SCH (20:15)
[2021-06-22] MEDS: Ipratropium/Albuterol Neb 3 ML IH SCH ×6 (03:34→23:31)
[2021-06-22 03:37] LABS: Eosinophils % 0.1 %; Hematocrit 25.8 % (37.5-50.1); Hemoglobin 8.3 g/dL (12.9-16.9); Immature Granulocytes % 0.5 % (0-4); Lymphocytes # 0.6 K/mcL (0.6-4.6); Lymphocytes % 5.7 %; Mean Corpuscular HGB Conc 32.2 g/dL (31.6-35.5); Mean Corpuscular Hemoglobin 30.6 pg (28.0-33.3); Mean Corpuscular Volume 95.2 fL (83.0-100.0); Mean Platelet Volume 9.5 fL (9.4-12.4); Monocytes # 0.4 K/mcL (0.0-1.3); Monocytes % 3.4 %; Neutrophils # 9.4 K/mcL (1.6-8.9); Platelet Count 139 K/mcL (140-400); Red Blood Count 2.71 M/mcL (4.19-5.50); Segmented Neutrophils % 90.3 %; White Blood Count 10.4 K/mcL (4.3-11.1)
[2021-06-22 03:54] LABS: VBG Ionized Calcium 1.22 mmol/L (1.15-1.35)
[2021-06-22 03:59] LABS: Calcium 8.7 mg/dL (8.6-10.3); Magnesium 2.3 mg/dL (1.6-2.6); Potassium 4.5 mEq/L (3.5-5.1)
[2021-06-22] MEDS: Gabapentin 100 MG CAPSULE PO SCH ×3 (07:47→20:35)
[2021-06-22] MEDS: Aspirin 81 MG TAB.CHEW PO SCH (07:47)
[2021-06-22] MEDS: predniSONE 20 MG TABLET PO SCH (07:47)
[2021-06-22] MEDS: *HR* Heparin 5,000 UNIT/ML VIAL SQ SCH ×3 (07:48→23:56)
[2021-06-22] MEDS: Piperacillin/Tazobactam 3.375 GM in 0.9 % Sodium Chloride Mini Bag 100 ML IVPB SCH (07:51)
[2021-06-22] MEDS: Budesonide/Formoterol 160/4.5 1 PUFF INH IH SCH ×2 (08:19→20:24)
[2021-06-22] MEDS: FLUoxetine HCl 10 MG CAPSULE PO SCH (20:35)
[2021-06-22] MEDS ORDERED: Furosemide 40 MG/4 ML VIAL IVP ONE (22:47)
[2021-06-23] MEDS: Ipratropium/Albuterol Neb 3 ML IH SCH ×5 (04:11→20:27)
[2021-06-23 04:13] LABS: Basophils % 0.1 %; Eosinophils % 0.2 %; Hemoglobin 8.4 g/dL (12.9-16.9); Immature Granulocytes % 0.6 % (0-4); Lymphocytes # 0.9 K/mcL (0.6-4.6); Lymphocytes % 7.1 %; Mean Corpuscular HGB Conc 31.1 g/dL (31.6-35.5); Mean Corpuscular Hemoglobin 29.7 pg (28.0-33.3); Mean Corpuscular Volume 95.4 fL (83.0-100.0); Mean Platelet Volume 9.4 fL (9.4-12.4); Monocytes # 0.6 K/mcL (0.0-1.3); Monocytes % 4.3 %; Neutrophils # 11.6 K/mcL (1.6-8.9); Platelet Count 161 K/mcL (140-400); Red Blood Count 2.83 M/mcL (4.19-5.50); Red Cell Distribution Width 15.9 % (11.5-14.5); Segmented Neutrophils % 87.7 %; White Blood Count 13.2 K/mcL (4.3-11.1)
[2021-06-23 04:31] LABS: BUN/Creatinine Ratio 50 (6-26); Blood Urea Nitrogen 67 mg/dL (8-23); Carbon Dioxide 26 mEq/L (23-29); Chloride 107 mEq/L (98-107); Glucose 93 mg/dL (70-105); Osmolality,Calculated 311 (280-300); Potassium 4.3 mEq/L (3.5-5.1); Sodium 141 mEq/L (136-145); eGFR For African Americans > 60 (> 60); eGFR For Non-African Americans 52 (> 60)
[2021-06-23] MEDS: Budesonide/Formoterol 160/4.5 1 PUFF INH IH SCH ×2 (07:57→20:36)
[2021-06-23] MEDS: Gabapentin 100 MG CAPSULE PO SCH ×3 (08:55→20:28)
[2021-06-23] MEDS: predniSONE 20 MG TABLET PO SCH (08:55)
[2021-06-23] MEDS: *HR* Heparin 5,000 UNIT/ML VIAL SQ SCH ×2 (08:55→15:50)
[2021-06-23] MEDS: Aspirin 81 MG TAB.CHEW PO SCH (08:55)
[2021-06-23] MEDS: Ondansetron 4 MG/2 ML VIAL IVP PRN (10:42)
[2021-06-23] MEDS: Furosemide 40 MG/4 ML VIAL IVP SCH (12:09)
[2021-06-23] MEDS ORDERED: Lactulose Oral Soln 20 GM/30 ML UDC PO ONE (12:14)
[2021-06-23] MEDS ORDERED: Bisacodyl 10 MG RECTAL SUPPOSITORY RC SCH (12:15)
[2021-06-23] MEDS: Metoprolol XL (24 HR) Succ 25 MG TAB.ER.24H PO SCH (12:39)
[2021-06-23] MEDS: Piperacillin/Tazobactam 3.375 GM in 0.9 % Sodium Chloride Mini Bag 100 ML IVPB SCH ×2 (15:50→23:59)
[2021-06-23] MEDS: FLUoxetine HCl 10 MG CAPSULE PO SCH (20:27)
[2021-06-23] MEDS: Nystatin POWDER 30 GM BOTTLE TP SCH (20:28)
[2021-06-24] MEDS: Ipratropium/Albuterol Neb 3 ML IH SCH ×7 (00:22→23:03)
[2021-06-24 05:00] LABS: Basophils % 0.1 %; Eosinophils % 0.1 %; Hematocrit 25.9 % (37.5-50.1); Hemoglobin 8.2 g/dL (12.9-16.9); Immature Granulocytes % 1.2 % (0-4); Lymphocytes # 0.9 K/mcL (0.6-4.6); Lymphocytes % 6.7 %; Mean Corpuscular HGB Conc 31.7 g/dL (31.6-35.5); Mean Corpuscular Hemoglobin 30.3 pg (28.0-33.3); Mean Corpuscular Volume 95.6 fL (83.0-100.0); Mean Platelet Volume 9.4 fL (9.4-12.4); Monocytes # 0.7 K/mcL (0.0-1.3); Monocytes % 5.3 %; Neutrophils # 11.5 K/mcL (1.6-8.9); Platelet Count 165 K/mcL (140-400); Red Blood Count 2.71 M/mcL (4.19-5.50); Segmented Neutrophils % 86.6 %; White Blood Count 13.3 K/mcL (4.3-11.1)
[2021-06-24 05:17] LABS: Calcium 8.8 mg/dL (8.6-10.3); Potassium 4.1 mEq/L (3.5-5.1)
[2021-06-24] MEDS: *HR* Heparin 5,000 UNIT/ML VIAL SQ SCH ×4 (07:51→23:18)
[2021-06-24] MEDS: Furosemide 40 MG/4 ML VIAL IVP SCH (07:51)
[2021-06-24] MEDS: Aspirin 81 MG TAB.CHEW PO SCH (07:51)
[2021-06-24] MEDS: Piperacillin/Tazobactam 3.375 GM in 0.9 % Sodium Chloride Mini Bag 100 ML IVPB SCH ×3 (07:51→23:18)
[2021-06-24] MEDS: Metoprolol XL (24 HR) Succ 25 MG TAB.ER.24H PO SCH ×2 (07:52→19:55)
[2021-06-24] MEDS: predniSONE 20 MG TABLET PO SCH (07:52)
[2021-06-24] MEDS: Gabapentin 100 MG CAPSULE PO SCH ×3 (07:52→19:54)
[2021-06-24] MEDS: Nystatin POWDER 30 GM BOTTLE TP SCH ×2 (07:53→19:55)
[2021-06-24] MEDS: Budesonide/Formoterol 160/4.5 1 PUFF INH IH SCH (08:45)
[2021-06-24] MEDS ORDERED: Ondansetron 4 MG/2 ML VIAL IVP PRN ×2 (12:30→13:53)
[2021-06-24] MEDS ORDERED: Albuterol 2.5 MG/3 ML NEBULIZER IH PRN ×2 (12:30→13:53)
[2021-06-24] MEDS ORDERED: Naloxone 0.4 MG/ML INJ IVP PRN ×2 (12:30→13:53)
[2021-06-24] MEDS ORDERED: Gabapentin 100 MG CAPSULE PO SCH (15:00)
[2021-06-24] MEDS ORDERED: Piperacillin/Tazobactam 3.375 GM in 0.9 % Sodium Chloride Mini Bag 100 ML IVPB SCH (16:00)
[2021-06-24] MEDS ORDERED: *HR* Heparin 5,000 UNIT/ML VIAL SQ SCH (16:00)
[2021-06-24] MEDS ORDERED: Ipratropium/Albuterol Neb 3 ML IH SCH (16:00)
[2021-06-24] MEDS: FLUoxetine HCl 10 MG CAPSULE PO SCH (19:54)
[2021-06-24] MEDS ORDERED: Nystatin POWDER 30 GM BOTTLE TP SCH (21:00)
[2021-06-24] MEDS ORDERED: FLUoxetine HCl 10 MG CAPSULE PO SCH (21:00)
[2021-06-24] MEDS ORDERED: Budesonide/Formoterol 160/4.5 1 PUFF INH IH SCH (22:00)
[2021-06-25] MEDS: Ipratropium/Albuterol Neb 3 ML IH SCH ×6 (03:39→23:53)
[2021-06-25 03:48] LABS: Hematocrit 25.6 % (37.5-50.1); Mean Corpuscular HGB Conc 31.3 g/dL (31.6-35.5); Mean Corpuscular Hemoglobin 29.9 pg (28.0-33.3); Mean Corpuscular Volume 95.5 fL (83.0-100.0); Mean Platelet Volume 9.5 fL (9.4-12.4); Platelet Count 161 K/mcL (140-400); Red Blood Count 2.68 M/mcL (4.19-5.50); Red Cell Distribution Width 15.9 % (11.5-14.5); White Blood Count 15.2 K/mcL (4.3-11.1)
[2021-06-25 04:01] LABS: Albumin 2.8 g/dL (3.5-5.7); Albumin/Globulin Ratio 1.1 (1.1-2.2); Bilirubin,Total 0.7 mg/dL (0.3-1.0); Calcium 8.8 mg/dL (8.6-10.3); Globulin 2.5 g/dL (2.4-3.5); Potassium 3.9 mEq/L (3.5-5.1); Total Protein 5.3 g/dL (6.4-8.9)
[2021-06-25] MEDS: Piperacillin/Tazobactam 3.375 GM in 0.9 % Sodium Chloride Mini Bag 100 ML IVPB SCH (07:43)
[2021-06-25] MEDS: *HR* Heparin 5,000 UNIT/ML VIAL SQ SCH ×2 (07:44→15:28)
[2021-06-25] MEDS: Gabapentin 100 MG CAPSULE PO SCH ×3 (07:44→19:59)
[2021-06-25] MEDS: Metoprolol XL (24 HR) Succ 25 MG TAB.ER.24H PO SCH ×2 (07:45→19:59)
[2021-06-25] MEDS: Aspirin 81 MG TAB.CHEW PO SCH (07:45)
[2021-06-25] MEDS: Bisacodyl 10 MG RECTAL SUPPOSITORY RC SCH (07:46)
[2021-06-25] MEDS: Nystatin POWDER 30 GM BOTTLE TP SCH ×2 (07:47→20:00)
[2021-06-25] MEDS ORDERED: Furosemide 40 MG/4 ML VIAL IVP SCH (09:00)
[2021-06-25] MEDS ORDERED: Metoprolol XL (24 HR) Succ 25 MG TAB.ER.24H PO SCH (09:00)
[2021-06-25] MEDS ORDERED: Aspirin 81 MG TAB.CHEW PO SCH (09:00)
[2021-06-25] MEDS ORDERED: Bisacodyl 10 MG RECTAL SUPPOSITORY RC SCH (09:00)
[2021-06-25] MEDS ORDERED: predniSONE 20 MG TABLET PO SCH ×2 (09:00)
[2021-06-25] MEDS: predniSONE 20 MG TABLET PO SCH (09:46)
[2021-06-25] MEDS: Lactobacillus 1 EACH CAP.SPRINK PO SCH ×2 (09:48→20:00)
[2021-06-25] MEDS: Amoxicillin/Clavulanate 500 MG TABLET PO SCH (15:28)
[2021-06-25] MEDS: FLUoxetine HCl 10 MG CAPSULE PO SCH (19:59)
[2021-06-26] MEDS: *HR* Heparin 5,000 UNIT/ML VIAL SQ SCH ×2 (00:09→08:09)
[2021-06-26] MEDS: Ipratropium/Albuterol Neb 3 ML IH SCH ×3 (03:40→11:18)
[2021-06-26 04:30] LABS: Mean Corpuscular HGB Conc 30.8 g/dL (31.6-35.5); Mean Corpuscular Hemoglobin 29.6 pg (28.0-33.3); Mean Corpuscular Volume 96.3 fL (83.0-100.0); Mean Platelet Volume 9.5 fL (9.4-12.4); Platelet Count 164 K/mcL (140-400); Red Cell Distribution Width 15.9 % (11.5-14.5); White Blood Count 13.5 K/mcL (4.3-11.1)
[2021-06-26 04:49] LABS: BUN/Creatinine Ratio 45 (6-26); Blood Urea Nitrogen 51 mg/dL (8-23); Calcium 8.8 mg/dL (8.6-10.3); Carbon Dioxide 29 mEq/L (23-29); Chloride 107 mEq/L (98-107); Glucose 82 mg/dL (70-105); Osmolality,Calculated 309 (280-300); Potassium 3.7 mEq/L (3.5-5.1); Sodium 143 mEq/L (136-145); eGFR For African Americans > 60 (> 60); eGFR For Non-African Americans > 60 (> 60)
[2021-06-26 05:32] LABS: ABG Base Excess 4 mEq/L (-2 to 3); ABG HCO3 29 mEq/L (21-27); ABG Oxygen Saturation 92 % (95-98); ABG PCO2 47 mmHg (35-45); ABG PO2 66 mmHg (85-104); ABG TCO2 31 mEq/L (20-26)
[2021-06-26] MEDS: Amoxicillin/Clavulanate 500 MG TABLET PO SCH (08:08)
[2021-06-26] MEDS: Aspirin 81 MG TAB.CHEW PO SCH (08:08)
[2021-06-26] MEDS: Lactobacillus 1 EACH CAP.SPRINK PO SCH (08:08)
[2021-06-26] MEDS: Metoprolol XL (24 HR) Succ 25 MG TAB.ER.24H PO SCH (08:09)
[2021-06-26] MEDS: predniSONE 20 MG TABLET PO SCH (08:09)
[2021-06-26] MEDS: Bisacodyl 10 MG RECTAL SUPPOSITORY RC SCH (08:09)
[2021-06-26] MEDS: Gabapentin 100 MG CAPSULE PO SCH (08:09)
[2021-06-26] MEDS: Nystatin POWDER 30 GM BOTTLE TP SCH (08:10)
[2021-06-26 11:41] VITALS: TEMP 97.6
[2021-06-26 13:06] VITALS: BP 143/61; PULSE 81; O2SAT 96
== END 2021-06-26 14:53 | disposition hospice, home (50) | DRG 871 ==
LOC: 2ANU → ICNU 15:54 → SUATTDRO 17:14 → 2NENU 06-19 21:15 → ICNU 06-20 12:43
PROVIDERS: ADMIT Internal Medicine; ATTEND Internal Medicine